=== PATIENT | female | born 1970 | race African-American/Black ===

== ENCOUNTER 2020-01-14 04:18 | Emergency (ER) | payer MEDICAID ==
[~2020-01-14] VITALS: Ht 162.6 cm; Wt 91.0 kg
[2020-01-14 04:20] VITALS: BP 156/102
[2020-01-14] MEDS ORDERED: ACETAMINOPHEN 325MG TABLET PO STA (06:43)
== END 2020-01-14 08:25 | disposition home or self-care (01) ==
LOC: ER 04:18
DX: R07.89 Other chest pain (principal); I10 Essential (primary) hypertension; Z88.6 Allergy status to analgesic agent
CPT/HCPCS: 71045; 99283

== ENCOUNTER 2021-11-22 11:21 | Emergency (ER) | payer MEDICAID ==
[~2021-11-22] VITALS: Ht 165.1 cm; Wt 73.0 kg
[2021-11-22 11:38] VITALS: BP 155/84
[2021-11-22] MEDS ORDERED: TOPUD PO (11:38)
[2021-11-22] MEDS ORDERED: ONDA4TAB5 PO (11:39)
[2021-11-22] MEDS ORDERED: ACETAMINOPHEN 325MG TABLET PO ONE (11:45)
== END 2021-11-22 12:11 | disposition home or self-care (01) ==
LOC: ER 11:21
DX: U07.1 COVID-19 (principal); I10 Essential (primary) hypertension; F41.9 Anxiety disorder, unspecified; M19.90 Unspecified osteoarthritis, unspecified site; Z88.0 Allergy status to penicillin
CPT/HCPCS: 93005; 99283